=== PATIENT | male | born 1995 | race Caucasian/White ===

== ENCOUNTER 2019-01-06 21:36 | Emergency (ER) | payer SELFPAY ==
[~2019-01-06] VITALS: Ht 177.8 cm; Wt 72.6 kg
[~2019-01-06 21:36] MED LIST: CYCL10TA9 PO; HYDR-700 PO; METH4TAB PO; ONDA-42 SL; TRAM50TA2 PO; [UNRECOGNIZED DRUG - OTHER] PO
[2019-01-06 21:54] LABS: BILIRUBIN,URINE NEGATIVE (NEGATIVE); CLARITY,URINE CLEAR; COLOR,URINE YELLOW; GLUCOSE, URINE (UA) NEGATIVE (NEGATIVE); KETONES,URINE NEGATIVE (NEGATIVE); LEUKOCYTE ESTERASE ,URINE NEGATIVE (NEGATIVE); NITRITE,URINE NEGATIVE (NEGATIVE); PH,URINE 8 (5-9); PROTEIN,URINE NEGATIVE (NEGATIVE); UROBILINOGEN,URINE NORMAL (NORMAL)
[2019-01-06 22:04] LABS: BACTERIA,URINE NEGATIVE /HPF; SQUAMOUS EPITHELIAL CELL,UR RARE /HPF
[2019-01-06 22:05] LABS: AMPHETAMINE SCREEN, URINE NEGATIVE (NEGATIVE); BARBITURATE SCREEN URINE NEGATIVE (NEGATIVE); BENZODIAZEPINES SCREEN URINE NEGATIVE (NEGATIVE); CANNABINOID SCREEN, URINE NEGATIVE (NEGATIVE); COCAINE SCREEN URINE NEGATIVE (NEGATIVE); METHADONE STAT NEGATIVE (NEGATIVE); METHAMPHETAMINE SCREEN URINE S NEGATIVE (NEGATIVE); OPIATE SCREEN URINE NEGATIVE (NEGATIVE); OXYCODONE STAT NEGATIVE (NEGATIVE); PROPOXYPHENE STAT NEGATIVE (NEGATIVE); TRICYCLIC ANTIDEPRESSANTS SCRE POSITIVE (NEGATIVE)
[2019-01-06 22:07] LABS: BASOPHILS % (AUTO) 0 % (0-10); EOSINOPHILS # (AUTO) 0.2 10^3/uL (0.0-0.3); EOSINOPHILS % (AUTO) 3 % (0-10); HEMATOCRIT 41 % (40-54); HEMOGLOBIN 13.5 G/DL (13.3-17.7); LYMPHOCYTES # (AUTO) 2.7 X 10^3 (1.0-4.0); LYMPHOCYTES % (AUTO) 33 % (12-44); MEAN CORPUSCULAR HEMOGLOBIN 30 PG (25-34); MEAN CORPUSCULAR HGB CONC 33 G/DL (32-36); MEAN CORPUSCULAR VOLUME 91 FL (80-99); MEAN PLATELET VOLUME 9.1 FL (7.4-10.4); MONOCYTES # (AUTO) 1.1 X 10^3 (0.0-1.0); MONOCYTES % (AUTO) 14 % (0-12); NEUTROPHILS # (AUTO) 4.1 X 10^3 (1.8-7.8); NEUTROPHILS % (AUTO) 50 % (42-75); PLATELET COUNT 290 10^3/uL (130-400); RED CELL DISTRIBUTION WIDTH 14.1 % (10.0-14.5); WHITE BLOOD COUNT 8.2 10^3/uL (4.3-11.0)
[2019-01-06] MEDS ORDERED: BUPR1FIL3 SL ×2 (22:16→22:19)
--- OUTSIDE RECORDS SUMMARY | 2019-01-06 22:18 | XMS REPORT | Continuity of Care Document ---
Author Organization Unknown Address Unknown Allergies There is no data. Medications There is no data. Problems There is no data. Procedures There is no data. Results There is no data. Encounters ACCT No. Visit Date/Time Discharge Status Pt. Type Provider Facility Loc./Unit Complaint [id number] 03/26/2014 03:37:00 03/26/2014 04:30:00 DIS Emergency [id number] 02/22/2014 17:25:00 02/22/2014 19:36:00 DIS Emergency [id number] 01/16/2014 11:50:00 01/16/2014 14:15:00 DIS Emergency [id number] 11/15/2013 19:31:00 11/15/2013 21:31:00 DIS Emergency [id number] 10/31/2013 22:52:00 10/31/2013 23:49:00 DIS Emergency
[2019-01-06 22:26] LABS: ALANINE AMINOTRANSFERASE 326 U/L (0-55); ALBUMIN 4.7 GM/DL (3.2-4.5); ALKALINE PHOSPHATASE 78 U/L (40-136); BILIRUBIN,TOTAL 0.4 MG/DL (0.1-1.0); BUN/CREATININE RATIO 14; CALCIUM 10.5 MG/DL (8.5-10.1); CARBON DIOXIDE 25 MMOL/L (21-32); CHLORIDE 99 MMOL/L (98-107); CREATININE SERUM 0.91 MG/DL (0.60-1.30); GFR ESTIMATED > 60; GLUCOSE 117 MG/DL (70-105); POTASSIUM 3.5 MMOL/L (3.6-5.0); SALICYLATE < 5.0 MG/DL (5.0-20.0); SODIUM 138 MMOL/L (135-145); TOTAL PROTEIN 7.4 GM/DL (6.4-8.2)
[2019-01-06 22:30] LABS: ACETAMINOPHEN < 10 UG/ML (10-30)
[2019-01-06 22:45] LABS: TSH (THYROID ANALYZER) 3.48 UIU/ML (0.35-4.94)
--- NOTE | 2019-01-06 23:25 | NUR ---
report given to monique
--- NOTE | 2019-01-06 23:49 | NUR ---
PT REQUESTING HOME MEDICATIONS, UNSURE OF NAMES/DOSAGES ERP NOTIFIED. DENIES OTHER NEEDS AT THIS TIME.
[2019-01-07] MEDS ORDERED: LORazepam 0.5 MG (ATIVAN) TABLET PO STA (00:03)
[2019-01-07] MEDS ORDERED: AMITRIPTYLINE 50 MG (ELAVIL) TAB PO ONE (00:15)
[2019-01-07] MEDS ORDERED: AMITRIPTYLINE 25 MG (ELAVIL) TAB PO ONE (00:15)
[2019-01-07] MEDS ORDERED: GABAPENTIN 300 MG (NEURONTIN) CAP PO ONE (00:15)
[2019-01-07] MEDS ORDERED: NICOTINE 21 MG (NICODERM) PATCH TD ONE ×2 (00:30→16:15)
--- NOTE | 2019-01-07 01:00 | NUR ---
PT RESTING IN BED NO DISTRESS NOTED.
--- NOTE | 2019-01-07 02:26 | ED Psychosocial ---
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 He reports auditory hallucinations of constant voices arguing in his mind. He also has paranoia that he is being monitored or his thoughts are being invaded by satellite signals. This has prevented social interaction for fear of bringing this influence into social situations. The aggravation from the hallucinations has led to suicidal thinking. Patient is considering jumping off a bridge. He notes these symptoms first started a couple years ago but have been escalating over the past couple of months. Patient lives with family in [place]. He uses marijuana about once a month. He denies any other drug or alcohol use. He has a young daughter and would like to try to reestablish relationship with her. He denies any suicide attempts. Patient initially stated he was not under any kind of psychiatric care but then later admitted he has numerous medications prescribed by a provider in [place] included amitriptyline, gabapentin, Klonopin, Zyprexa, and Suboxone. He states he took his medications today. He does have a history of opioid dependence. He was seen for opioid withdrawal in 2013 at this facility. Patient states he has been admitted to psychiatric facilities in [place], [place]. He consents to admission to a psychiatric facility today but would like a fresh start at a new facility. He is requesting a facility in [place]. (MARTHA PAGAN MD) Allergies and Home Medications Allergies Coded Allergies: NSAIDS (Non-Steroidal Anti-Inflamma (Unverified Allergy, Mild, RASH, 10/31/13) Home Medications Amitriptyline HCl 25 Mg Tablet, 25 MG PO HS, (Reported) Buprenorphine HCl/Naloxone HCl 1 Each Film, 1 EACH SL TID, (Reported) Buprenorphine HCl/Naloxone HCl 1 Each Film, 1 EACH SL TID, (Reported) Clonazepam 1 Mg Tablet, 1 MG PO TID, (Reported) Fluoxetine HCl 10 Mg Capsule, 30 MG PO DAILY, (Reported) Gabapentin 400 Mg Capsule, 400 MG PO TID, (Reported) Haloperidol 5 Mg Tablet, 5 MG PO BID, (Reported) Methylprednisolone 4 Mg/Dose-Pack Tab.ds.pk, 0 PO UD Prescribed by: HUGH CHILDERS on 03/26/14 0423 [Suvoxin] , 8 MG PO DAILY, (Reported) Patient Home Medication List Home Medication List Reviewed: Yes (MARTHA PAGAN MD) Review of Systems Constitutional: no symptoms reported EENTM: no symptoms reported Respiratory: no symptoms reported Cardiovascular: no symptoms reported Gastrointestinal: no symptoms reported Genitourinary: no symptoms reported Musculoskeletal: no symptoms reported Skin: no symptoms reported Psychiatric/Neurological: See HPI (MARTHA PAGAN MD) Past Cmlehkj-Weytus-Djsftc Hx Past Med/Social Hx: Reviewed and Corrections made (MARTHA PAGAN MD) Patient Social History Alcohol Use: Regular Use Alcohol Beverage of Choice: Beer, Whiskey Recreational Drug Use: No Smoking Status: Current Everyday Smoker Type Used: Cigarettes 2nd Hand Smoke Exposure: Yes Recent Foreign Travel: No Contact w/Someone Who Travel: No Recent Infectious Disease Expo: No Physical Abuse: No Sexual Abuse: No Mistreated: No Fear: No (MARTHA PAGAN MD) Seasonal Allergies Seasonal Allergies: No (MARTHA PAGAN MD) Past Medical History Surgeries: Yes Orthopedic (hip aspiration), Tonsillectomy Respiratory: Yes Asthma Cardiac: No Neurological: Yes Concussion Reproductive Disorders: No Genitourinary: No Gastrointestinal: No Musculoskeletal: No Endocrine: No HEENT: No Cancer: No Psychosocial: Yes (hallucinations, paranoia, history of opioid dependence) Blood Disorders: No (MARTHA PAGAN MD) Physical Exam Vital Signs - First Documented 01/06/19 01/07/19 21:47 02:45 Temp 97.4 Pulse 112 Resp 18 B/P (MAP) 129/82 (98) Pulse Ox 98 O2 Delivery Room Air (SALUD DALE MD) Capillary Refill : Less Than 3 Seconds (MARTHA PAGAN MD) Height, Weight, BMI Height: 5'10.00" Weight: 160lbs. oz. 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, no motor/sensory deficits, alert, oriented x 3 Appearance/Memory: appropriate appearance, appropriate insight Behavior/Eye Contact: cooperative, good eye contact Thoughts/Hallucinations: auditory hallucinations, other (suicidal ideation with plan) Skin: normal color, warm/dry (MARTHA PAGAN MD) Progress/Results/Core Measures Results/Orders Lab Results Laboratory Tests Test 01/06/19 21:45 01/06/19 21:59 Range/Units Urine Color YELLOW Urine Clarity CLEAR Urine pH 8 5-9 Urine Specific [place] 1.015 L 1.016-1.022 Urine Protein NEGATIVE NEGATIVE Urine Glucose (UA) NEGATIVE NEGATIVE Urine Ketones NEGATIVE NEGATIVE Urine Nitrite NEGATIVE NEGATIVE Urine Bilirubin NEGATIVE NEGATIVE Urine Urobilinogen NORMAL NORMAL MG/DL Urine Leukocyte Esterase NEGATIVE NEGATIVE Urine RBC (Auto) NEGATIVE NEGATIVE Urine RBC NONE /HPF Urine WBC NONE /HPF Urine Squamous Epithelial Cells RARE /HPF Urine Crystals NONE /LPF Urine Bacteria NEGATIVE /HPF Urine Casts NONE /LPF Urine Mucus NEGATIVE /LPF Urine Culture Indicated NO Urine Opiates Screen NEGATIVE NEGATIVE Urine Oxycodone Screen NEGATIVE NEGATIVE Urine Methadone Screen NEGATIVE NEGATIVE Urine Propoxyphene Screen NEGATIVE NEGATIVE Urine Barbiturates Screen NEGATIVE NEGATIVE Ur Tricyclic Antidepressants Screen POSITIVE H NEGATIVE Urine Phencyclidine Screen NEGATIVE NEGATIVE Urine Amphetamines Screen NEGATIVE NEGATIVE Urine Methamphetamines Screen NEGATIVE NEGATIVE Urine Benzodiazepines Screen NEGATIVE NEGATIVE Urine Cocaine Screen NEGATIVE NEGATIVE Urine Cannabinoids Screen NEGATIVE NEGATIVE White Blood Count 8.2 4.3-11.0 10^3/uL Red Blood Count 4.51 4.35-5.85 10^6/uL Hemoglobin 13.5 13.3-17.7 G/DL Hematocrit 41 40-54 % Mean Corpuscular Volume 91 80-99 FL Mean Corpuscular Hemoglobin 30 25-34 PG Mean Corpuscular Hemoglobin Concent 33 32-36 G/DL Red Cell Distribution Width 14.1 10.0-14.5 % Platelet Count 290 130-400 10^3/uL Mean Platelet Volume 9.1 7.4-10.4 FL Neutrophils (%) (Auto) 50 42-75 % Lymphocytes (%) (Auto) 33 12-44 % Monocytes (%) (Auto) 14 H 0-12 % Eosinophils (%) (Auto) 3 0-10 % Basophils (%) (Auto) 0 0-10 % Neutrophils # (Auto) 4.1 1.8-7.8 X 10^3 Lymphocytes # (Auto) 2.7 1.0-4.0 X 10^3 Monocytes # (Auto) 1.1 H 0.0-1.0 X 10^3 Eosinophils # (Auto) 0.2 0.0-0.3 10^3/uL Basophils # (Auto) 0.0 0.0-0.1 10^3/uL Sodium Level 138 135-145 MMOL/L Potassium Level 3.5 L 3.6-5.0 MMOL/L Chloride Level 99 98-107 MMOL/L Carbon Dioxide Level 25 21-32 MMOL/L Anion Gap 14 5-14 MMOL/L Blood Urea Nitrogen 13 7-18 MG/DL Creatinine 0.91 0.60-1.30 MG/DL Estimat Glomerular Filtration Rate > 60 BUN/Creatinine Ratio 14 Glucose Level 117 H 70-105 MG/DL Calcium Level 10.5 H 8.5-10.1 MG/DL Corrected Calcium 8.5-10.1 MG/DL Total Bilirubin 0.4 0.1-1.0 MG/DL Aspartate Amino Transf (AST/SGOT) 133 H 5-34 U/L Alanine Aminotransferase (ALT/SGPT) 326 H 0-55 U/L Alkaline Phosphatase 78 40-136 U/L Total Protein 7.4 6.4-8.2 GM/DL Albumin 4.7 H 3.2-4.5 GM/DL TSH [place] Testing 3.48 0.35-4.94 UIU/ML Salicylates Level < 5.0 L 5.0-20.0 MG/DL Acetaminophen Level < 10 L 10-30 UG/ML Serum Alcohol < 10 <10 MG/DL (SALUD DALE MD) My Orders Orders - SALUD DALE MD Fluoxetine Capsule (Prozac Capsule) (01/07/19 08:44) Haloperidol Tablet (Haldol Tablet) (01/07/19 08:45) Gabapentin Capsule/Tablet (Neurontin Cap (01/07/19 08:45) Clonazepam Tablet (Klonopin Tablet) (01/07/19 08:45) General/Regular (01/07/19 Lunch) Gabapentin Capsule/Tablet (Neurontin Cap (01/07/19 14:45) Clonazepam Tablet (Klonopin Tablet) (01/07/19 14:45) Methadone Tablet (Dolophine Tablet) (01/07/19 15:30) (SALUD DALE MD) Medications Given in ED Current Medications Medications Dose Ordered Sig/Sandor Route Start Time Stop Time Status Last Admin Dose Admin Clonazepam 1 mg ONCE ONCE PO 01/07/19 08:45 01/07/19 08:48 DC 01/07/19 09:26 1 MG Clonazepam 1 mg ONCE ONCE PO 01/07/19 14:45 01/07/19 14:46 DC 01/07/19 15:12 1 MG Gabapentin 400 mg ONCE ONCE PO 01/07/19 08:45 01/07/19 08:48 DC 01/07/19 09:26 400 MG Gabapentin 400 mg ONCE ONCE PO 01/07/19 14:45 01/07/19 14:46 DC 01/07/19 15:12 400 MG Haloperidol 5 mg ONCE ONCE PO 01/07/19 08:45 01/07/19 08:48 DC 01/07/19 09:26 5 MG Methadone HCl 10 mg ONCE ONCE PO 01/07/19 15:30 01/07/19 15:31 DC 01/07/19 16:05 10 MG (SALUD DALE MD) Vital Signs/I&O 01/07/19 06:32 Temp 97.2 Pulse 73 Resp 16 B/P (MAP) 114/73 (87) Pulse Ox 96 O2 Delivery Room Air (SALUD DALE MD) Blood Pressure Mean: 98 Progress Progress Note #1: Time: 03:00 Progress Note Staff is presently working on finding inpatient psychiatric placement for this patient. Patient strongly desired placement in [place] near [place] to be close to family. He was given some of his evening medications. Medication administration was done carefully as he did not know the exact doses of his medications. Suboxone was not available at this hospital. Patient was concerned about withdrawing from opioids. An additional milligram of Ativan was administered to help prevent withdrawal symptoms. Progress Note #2: Time: 06:00 Progress Note Care of this patient is being transferred to Dr. Dale. We have not been able to find placement for this patient in [place]. We will seek placement elsewhere. (MARTHA PAGAN MD) Progress Note : Progress Note 0730: I did assume care of the patient earlier from Dr. Torres pending transfer to psychiatric facility. I reviewed his history and labs. Have discussed concerns with the patient. Currently there are no beds available in [place] and we have discussed this with the patient. He requested [facility]. That facility is also full and without any pending discharges in the near future. We have discussed with both [facility] in [facility] and [facility] in [place], [place]. Both are full currently but are pending discharges and are evaluating the patient. Patient is awake. He is concerned about his Suboxone but we do not have dosing available to give him. He has been able to walk around his room and is currently ordering breakfast. Informed of all of current attempts at placement and he understands we are still pending transfer. Monitor patient. 0830: I was able to talk with staff at the [facility] and determined his discharge medications. A.m. meds ordered. 1215: Patient tolerating no nail. There is still pending evaluation at the [facility]. The [place] facility is now all. We have called multiple other facilities and the [facility] area and are not findings access. Pending call back from [facility]. He did receive his morning meds at 8:30 including fluoxetine, Haldol, clonazepam and gabapentin. We will continue meds as prescribed while pending bed assignment. 1415: Patient eating snack. [facility] is not available as they are out of bed with a wait list as well. No significant change or concerns patient. Monitor patient. 1530: Patient is showing some signs of withdrawal. I have talked with our local physician but does medication assisted treatment for drug abuse, Dr. Wu, regarding concerns with Suboxone and other treatment options as we do not have that. She has spoken with other physicians that do medication assisted treatments and the consensus is that methadone in the dosing of approximately 30 mg daily and a short course would be an acceptable alternative and would not affect Suboxone treatment if he were to restart that. I do anticipate a short course. Last dosing was in the last 24-48 hours at his previous treatment center in [place]. He does have access to a prescription at [facility] in [place] after he completes his inpatient therapy wherever he may go. Methadone 10 mg by mouth ordered now and we will continue that 3 times a day as we are looking for beds. We were fortunate to be able to find a open bed at [facility] in [facility]. This was actually patient's preference. They did have a bed opened up and I did discuss the case with Dr. Duke and he has accepted the patient for transfer to their facility. [facility]. We're awaiting bed number. Patient was in full agreement with that plan. (SALUD DALE MD) Departure Impression Primary Impression: Suicidal ideation Additional Impressions: Auditory hallucinations Acute paranoia Schizophrenia Qualified Codes: F20.9 - Schizophrenia, unspecified Disposition: 02 XFER SHT-TRM HOSP Condition: Stable Transfer Time Spoke to Accepting Phy: 16:05 Transfer Facility: [place], [place], Dr. Duke accepting Method of Transfer: Private Vehicle ([facility] transport service) (SALUD DALE MD) Departure-Patient Inst. Referrals: NO,LOCAL PHYSICIAN (PCP/Family) Primary Care Physician MARTHA PAGAN MD Jan 07, 2019 02:26 SALUD DALE MD Jan 07, 2019 07:50
[2019-01-07 02:45] VITALS: BP 121/78
--- NOTE | 2019-01-07 02:50 | NUR ---
PT REQUESTING MEDICATION FOR ANXIETY NEW ORDERS RECIEVED. NO OTHER COMPLAINTS AT THIS TIME.
[2019-01-07] MEDS ORDERED: LORazepam INJ 2 MG/ML (ATIVAN) VIAL IVP ONE (03:00)
--- NOTE | 2019-01-07 03:05 | NUR ---
INFORMATION FAXED TO [facility] IN [place].
--- NOTE | 2019-01-07 04:09 | NUR ---
PT SLEEPING ON CART, NO DISTRESS NOTED.
--- NOTE | 2019-01-07 04:23 | NUR ---
[facility] DECLINED ADMISSION, NO BEDS AVAILABLE
--- NOTE | 2019-01-07 06:09 | NUR ---
DR DALE IN TALKING WITH PATIENT. PT INFORMED NO BEDS AVAILABLE AT THIS TIME.
--- NOTE | 2019-01-07 06:12 | NUR ---
[facility] DECLINED ADMISSION
[2019-01-07 06:32] VITALS: BP 114/73
--- NOTE | 2019-01-07 06:50 | NUR ---
DEREJE GUTHRIE DECLINED ADMISSION.
--- NOTE | 2019-01-07 07:15 | NUR ---
Pt bp 115/74. Pt hr 69 and 02 sat on RA is 97%.
--- NOTE | 2019-01-07 07:51 | NUR ---
meal tray ordered for pt at this time. Pt is awake and sitting up in bed. Pt reports he needs to take his fluoxetine. Dr. Almeida informed but reports it is not carried in our pharmacy. Pt informed.
--- NOTE | 2019-01-07 08:10 | NUR ---
meal tray to pt at this time.
[2019-01-07] MEDS ORDERED: FLUoxetine HCL 20 MG (PROzac) CAP PO STA (08:44)
[2019-01-07] MEDS ORDERED: HALOPERIDOL 5 MG (HALDOL) TAB PO ONE (08:45)
[2019-01-07] MEDS ORDERED: clonazePAM 1 MG (KlonoPIN) TAB PO ONE ×2 (08:45→14:45)
[2019-01-07] MEDS ORDERED: GABAPENTIN 400 MG (NEURONTIN) CAP PO ONE ×2 (08:45→14:45)
[2019-01-07] MEDS ORDERED: CLON1TAB13 PO (08:54)
[2019-01-07] MEDS ORDERED: BUPR1FIL3 SL (08:54)
[2019-01-07] MEDS ORDERED: AMIT25TA9 PO (08:54)
[2019-01-07] MEDS ORDERED: GABA-490 PO (08:54)
[2019-01-07] MEDS ORDERED: FLUO10CA19 PO (08:54)
[2019-01-07] MEDS ORDERED: HALO5TAB PO (08:54)
--- NOTE | 2019-01-07 10:23 | NUR ---
PT RESTING AT THIS TIME WITH EYES CLOSED AND LIGHTS DIMMED. APPEARS IN NO DISTRESS.
--- NOTE | 2019-01-07 11:33 | NUR ---
PT CURRENT BP 106/59. PT HR 65 AND O2 SAT ON RA 97%. PT REPORTS HE IS HUNGRY FOR LUNCH AT THIS TIME. MEAL ORDERED AT THIS TIME.
--- NOTE | 2019-01-07 12:26 | NUR ---
DR DALE IN ROOM WITH PT AT THIS TIME DISCUSSING PLAN OF CARE AND PROGRESS FOR TRANSFER/ACCEPTING [facility].
--- NOTE | 2019-01-07 13:08 | NUR ---
PT BP 111/ 78. PT HR 90. PT O2 SAT ON RA AT 97%.
--- NOTE | 2019-01-07 14:05 | NUR ---
PT RESTING WITH EYES CLOSED AND LIGHTS DIMMED AT THIS TIME. APPEARS IN NO OBVIOUS DISTRESS.
--- NOTE | 2019-01-07 14:25 | NUR ---
PT REQUEST DESERT AT THIS TIME. PT ORDERS A BROWNIE, VANILLA ICE CREAM CUP, AND A STRAWBERRY ICE CREAM CUP.
--- NOTE | 2019-01-07 15:29 | NUR ---
[facility] CALLED BACK AT THIS TIME, REPORTS THEIR PHYSCIAN HAS DECLINED THE PATIENT.
[2019-01-07] MEDS ORDERED: METHADONE 10 MG (DOLOPHINE) TAB PO ONE (15:30)
--- NOTE | 2019-01-07 16:03 | NUR ---
pt bp 112/81. pt hr 71. pt O2 sat on ra 96%. pt sitting up in bed at this time watching television.
--- NOTE | 2019-01-07 16:20 | NUR ---
RECIEVED [facility] BED NUMBER FROM [facility] AT THIS TIME.
[2019-01-07 16:51] VITALS: BP 112/71
--- NOTE | 2019-01-07 16:51 | NUR ---
[facility] HERE FOR PT AT THIS TIME
== END 2019-01-07 16:55 | disposition short-term general hospital (02) ==
LOC: EDUNIT# 21:36 → ER 21:37
DX: F20.9 Schizophrenia, unspecified (principal); F22 Delusional disorders; R45.851 Suicidal ideations; J45.909 Unspecified asthma, uncomplicated; F17.200 Nicotine dependence, unspecified, uncomplicated; Z88.6 Allergy status to analgesic agent; Z90.89 Acquired absence of other organs
CPT/HCPCS: 36415; 80053; 80306; 80320; 80329; 81000; 84443; 85025; 96374